=== PATIENT | female | born 1955 | race African-American/Black ===

== ENCOUNTER 2020-10-06 21:54 | Inpatient (IN) ==
[2020-10-06 23:11] LABS: ABG Base Excess -14.4 MMOL/L (-2.5-2.5); ABG HCO3 13.2 MMOL/L (20-26); ABG Oxygen Saturation 96.3 % (95-100); ABG PCO2 22.2 MM HG (35-48); ABG PO2 92.4 MM HG (80-95); ABG TCO2 10.2 MMOL/L (23-27)
[2020-10-06 23:49] LABS: Basophils % 0.1 % (0.0-0.8); Hematocrit 27.3 VOL% (35.7-47.0); Hemoglobin 8.5 GM/DL (12.0-16.0); Immature Granulocytes Absolute 0.07 #; Lymphocytes # 1.1 10*3/uL (1.4-4.0); Lymphocytes % 15.3 % (21.3-54.2); Mean Corpuscular HGB Conc 31.1 GM/DL (32-36); Mean Corpuscular Volume 83.7 FL (87-102); Mean Platelet Volume 13.3 FL (9.6-12.0); Monocytes % 4.6 % (1.7-12.7); Platelet Count 96 T/CUMM (130-400); Red Blood Count 3.26 MC/CUMM (3.8-5.5); Red Cell Distribution Width 15.4 % (9.3-17.3); White Blood Count 6.9 T/CUMM (4-12)
[2020-10-07] LABS: Bilirubin,Urine Negative (Negative); Blood, Urine Moderate mg/dL (Negative); Glucose,Urine (UA) 50 mg/dL (Negative); Ketones,Urine Negative (Negative); Mucus,Urine Occasional /LPF (Occasional); Nitrite,Urine Negative (Negative); Protein,Urine >=500 MG/DL; Squamous Epithelial Cell,Urine Occasional /HPF (0-10); Urine Appearance CLOUDY (Clear); Urine Color Yellow (Yellow); Urine Specific Gravity 1.014 (1.001-1.035); Urine Urobilinogen < 2.0 EU/DL (0.2-1.0)
[2020-10-07 00:01] LABS: Barbiturates Screen,Urine Negative (Negative); Benzodiazepines Screen,Urine Positive (Negative); Cannabinoid Screen,Urine Negative (Negative); Opiate Screen,Urine Negative (Negative); Phencyclidine Screen,Urine Negative (Negative)
[2020-10-07 00:16] LABS: Alanine Aminotransferase 25 U/L (13-56); Albumin 3.4 G/DL (3.4-5.0); Alkaline Phosphatase 181 U/L (45-117); Aspartate Amino Transferase 52 U/L (0-37); Bilirubin,Total < 0.39 MG/DL (0.20-1.00); Blood Urea Nitrogen 102 MG/DL (7-18); Calcium 8.8 MG/DL (8.5-10.1); Carbon Dioxide 13 MMOL/L (21-32); Estimated Glom Filtration Rate 3 ML/MIN; Glucose 104 MG/DL (74-106); Osmolality,Calculated 301.1 MOS/KG (273-304); Potassium 4.2 MMOL/L (3.5-5.1); Sodium 135 MMOL/L (136-145); Total Protein 8.3 G/DL (6.4-8.2)
[2020-10-07] MEDS ORDERED: GLUCAGON 1 MG VIAL IM PRN (02:17)
[2020-10-07] MEDS ORDERED: ONDANSETRON 4 MG/2 ML VIAL IV PRN ×2 (02:17→10:30)
[2020-10-07] MEDS ORDERED: hydrALAZINE 20 MG/1 ML VIAL IV PRN (02:17)
[2020-10-07] MEDS ORDERED: DEXTROSE 50% 25 GM/50 ML VIAL IV PRN (02:17)
[2020-10-07] MEDS ORDERED: SODIUM BICARB INJ 150 MEQ in STERILE WATER INJ 850 ML IV SCH (04:00)
[2020-10-07] MEDS ORDERED: AZITHROMYCIN INJ 500 MG in SODIUM CHLORIDE 0.9% 250 ML IV ONE (04:00)
[2020-10-07] MEDS: SODIUM BICARB INJ 150 MEQ in STERILE WATER INJ 850 ML IV SCH ×2 (04:34→23:15)
[2020-10-07 04:49] LABS: PT Patient Result 11.5 SECS (10.5-12.0)
[2020-10-07] MEDS ORDERED: PANTOPRAZOLE 40 MG TABLET PO SCH (09:00)
[2020-10-07] MEDS ORDERED: ENOXAPARIN 30 MG/0.3 ML SYRINGE SUBCUT SCH (09:00)
[2020-10-07] MEDS: INSULIN REGULAR 100 UNIT/ML SUBCUT SCH ×4 (09:20→22:07)
[2020-10-07] MEDS: DOCUSATE SODIUM 100 MG CAPSULE PO SCH ×2 (09:20→22:21)
[2020-10-07] MEDS: CHOLECALCIFEROL 1,000 UNIT TABLET PO SCH (09:20)
[2020-10-07] MEDS: ASCORBIC ACID 500 MG TABLET PO SCH ×2 (09:20→22:21)
[2020-10-07] MEDS: CETIRIZINE 10 MG TABLET PO SCH (09:20)
[2020-10-07] MEDS: ZINC GLUCONATE 50 MG TABLET PO SCH (09:20)
[2020-10-07] MEDS: DEXAMETHASONE 4 MG/1 ML VIAL IV SCH (09:21)
[2020-10-07] MEDS ORDERED: ACETAMINOPHEN 325 MG TABLET PO PRN (10:30)
[2020-10-07] MEDS ORDERED: MECLIZINE 25 MG TABLET PO PRN (10:30)
[2020-10-07] MEDS ORDERED: diphenhydrAMINE 50 MG/1 ML VIAL IV PRN (10:30)
[2020-10-07] MEDS ORDERED: methylPREDNISolone SOD SUC 125 MG/2 ML VIAL IV PRN (10:30)
[2020-10-07] MEDS ORDERED: CASIRIVIMAB/IMDEVIMAB 1,200 MG in SODIUM CHLORIDE 0.9% 100 ML IV ONE ×2 (11:30→17:00)
[2020-10-07] MEDS ORDERED: LIDOCAINE 1%/EPI INJ 20 ML VIAL ONE (13:14)
[2020-10-07] MEDS ORDERED: HEPARIN 5,000 UNIT/1 ML VIAL ONE (13:14)
[2020-10-07] MEDS ORDERED: BUPIVACAINE MPF 0.25% 30 ML VIAL ONE (13:14)
[2020-10-07] MEDS ORDERED: MIDAZOLAM 2 MG/2 ML VIAL ONE (13:18)
[2020-10-07] MEDS ORDERED: KETAMINE 500 MG/10 ML VIAL ONE (13:18)
[2020-10-07] MEDS ORDERED: DEXMEDETOMIDINE 200 MCG/2 ML VIAL ONE (13:19)
[2020-10-07] MEDS ORDERED: ETOMIDATE 40 MG/20 ML VIAL IV ONE (13:19)
[2020-10-07] MEDS ORDERED: fentaNYL 100 MCG/2 ML VIAL ONE (13:19)
[2020-10-07] MEDS: METOPROLOL SUCCINATE XL 50 MG TABLET PO SCH ×2 (13:45→18:37)
[2020-10-07] MEDS: ASPIRIN EC 81 MG TABLET PO SCH (13:46)
[2020-10-07] MEDS ORDERED: CLINDAMYCIN INJ 900 MG/50 ML PREMIX IV ONE (14:11)
[2020-10-07] MEDS: ROSUVASTATIN 20 MG TABLET PO SCH (22:21)
[2020-10-08] MEDS: ACETAMINOPHEN 325 MG TABLET PO PRN ×2 (00:25→04:23)
[2020-10-08] MEDS: SODIUM BICARB INJ 150 MEQ in STERILE WATER INJ 850 ML IV SCH ×2 (06:17→23:46)
[2020-10-08 06:25] LABS: Hemoglobin 8.2 GM/DL (12.0-16.0); Immature Granulocytes % 0.9 %; Immature Granulocytes Absolute 0.07 #; Lymphocytes # 0.7 10*3/uL (1.4-4.0); Lymphocytes % 8.6 % (21.3-54.2); Mean Corpuscular HGB Conc 32.8 GM/DL (32-36); Mean Corpuscular Volume 79.4 FL (87-102); Neutrophils % 87.5 % (38.7-73.9); Platelet Count 101 T/CUMM (130-400); Red Blood Count 3.15 MC/CUMM (3.8-5.5); Red Cell Distribution Width 15.1 % (9.3-17.3); White Blood Count 7.7 T/CUMM (4-12)
[2020-10-08 06:44] LABS: Calcium 7.5 MG/DL (8.5-10.1); Potassium 3.5 MMOL/L (3.5-5.1)
[2020-10-08 06:44] LABS: Albumin 2.7 G/DL (3.4-5.0); Bilirubin,Total 0.8 MG/DL (0.20-1.00); Calcium 7.7 MG/DL (8.5-10.1); Osmolality,Calculated 287.8 MOS/KG (273-304); Potassium 3.4 MMOL/L (3.5-5.1); Total Protein 7.3 G/DL (6.4-8.2)
[2020-10-08 07:05] LABS: Band Neutrophils 32 % (0-10); Lymphocytes 6 % (20-55); Metamyelocytes 1 %; Segmented Neutrophils 58 % (50-85); Total Cells Counted 100
[2020-10-08 07:06] LABS: Anisocytosis 1+; Burr Cells Few; Platelet Estimate Adequate
[2020-10-08] MEDS ORDERED: POTASSIUM CHLORIDE 20 MEQ TABLET PO ONE (07:42)
[2020-10-08] MEDS ORDERED: MAGNESIUM SULF RIDER 2 GM/50 ML PREMIX IV ONE (07:43)
[2020-10-08] MEDS: INSULIN REGULAR 100 UNIT/ML SUBCUT SCH ×4 (08:00→22:32)
[2020-10-08 10:05] LABS: Hepatitis B Core IgM Quant 0.11 Index; Hepatitis B Surface Ag Quant < 0.10 Index; Hepatitis B Surface Ag Result Non-Reactive (NonReactive); Hepatitis C Virus Ab Quant 0.19 Index; Hepatitis C Virus Ab Result Non-Reactive (NonReactive)
[2020-10-08] MEDS: ASCORBIC ACID 500 MG TABLET PO SCH ×2 (11:13→22:33)
[2020-10-08] MEDS: CHOLECALCIFEROL 1,000 UNIT TABLET PO SCH (11:13)
[2020-10-08] MEDS: AZITHROMYCIN 250 MG TABLET PO SCH (11:13)
[2020-10-08] MEDS: METOPROLOL SUCCINATE XL 50 MG TABLET PO SCH (11:13)
[2020-10-08] MEDS: DOCUSATE SODIUM 100 MG CAPSULE PO SCH ×2 (11:13→22:32)
[2020-10-08] MEDS: ASPIRIN EC 81 MG TABLET PO SCH (11:13)
[2020-10-08] MEDS: ZINC GLUCONATE 50 MG TABLET PO SCH (11:13)
[2020-10-08] MEDS: HEPARIN 5,000 UNIT/1 ML VIAL SUBCUT SCH ×2 (11:14→18:08)
[2020-10-08] MEDS: CETIRIZINE 10 MG TABLET PO SCH (11:14)
[2020-10-08] MEDS: DEXAMETHASONE 4 MG/1 ML VIAL IV SCH (11:14)
[2020-10-08] MEDS: ROSUVASTATIN 20 MG TABLET PO SCH (22:32)
[2020-10-09] MEDS: HEPARIN 5,000 UNIT/1 ML VIAL SUBCUT SCH ×3 (01:11→17:24)
[2020-10-09] MEDS: ACETAMINOPHEN 325 MG TABLET PO PRN (04:16)
[2020-10-09 06:25] LABS: Hematocrit 25.1 VOL% (35.7-47.0); Hemoglobin 7.7 GM/DL (12.0-16.0); Immature Granulocytes % 1.6 %; Immature Granulocytes Absolute 0.12 #; Lymphocytes # 0.6 10*3/uL (1.4-4.0); Lymphocytes % 7.9 % (21.3-54.2); Mean Corpuscular HGB Conc 30.7 GM/DL (32-36); Mean Corpuscular Volume 83.4 FL (87-102); Mean Platelet Volume 13.9 FL (9.6-12.0); Monocytes % 3.5 % (1.7-12.7); Platelet Count 110 T/CUMM (130-400); Red Blood Count 3.01 MC/CUMM (3.8-5.5); Red Cell Distribution Width 14.9 % (9.3-17.3); White Blood Count 7.6 T/CUMM (4-12)
[2020-10-09 06:51] LABS: Band Neutrophils 2 % (0-10); Eosinophils 1 % (0-10); Hypochromasia 1+; Lymphocytes 4 % (20-55); Segmented Neutrophils 86 % (50-85); Total Cells Counted 100
[2020-10-09 06:52] LABS: Anisocytosis 1+; Microcytosis 1+; Platelet Estimate Decreased
[2020-10-09 07:09] LABS: Albumin 2.3 G/DL (3.4-5.0); Bilirubin,Total 1.5 MG/DL (0.20-1.00); Calcium 8.1 MG/DL (8.5-10.1); Ferritin 1765.9 ng/ml (8-252); Osmolality,Calculated 278.8 MOS/KG (273-304); Potassium 3.3 MMOL/L (3.5-5.1); Total Protein 7.2 G/DL (6.4-8.2)
[2020-10-09] MEDS: INSULIN REGULAR 100 UNIT/ML SUBCUT SCH ×4 (07:57→21:38)
[2020-10-09] MEDS ORDERED: POTASSIUM CHLORIDE 20 MEQ TABLET PO PRN (08:10)
[2020-10-09] MEDS: DEXAMETHASONE 4 MG/1 ML VIAL IV SCH (08:20)
[2020-10-09] MEDS: ASPIRIN EC 81 MG TABLET PO SCH (10:59)
[2020-10-09] MEDS: METOPROLOL SUCCINATE XL 50 MG TABLET PO SCH (10:59)
[2020-10-09] MEDS: DOCUSATE SODIUM 100 MG CAPSULE PO SCH ×2 (10:59→21:38)
[2020-10-09] MEDS: CETIRIZINE 10 MG TABLET PO SCH (11:00)
[2020-10-09] MEDS: ZINC GLUCONATE 50 MG TABLET PO SCH (11:00)
[2020-10-09] MEDS: ASCORBIC ACID 500 MG TABLET PO SCH ×2 (11:00→21:38)
[2020-10-09] MEDS: AZITHROMYCIN 250 MG TABLET PO SCH (11:00)
[2020-10-09] MEDS: CHOLECALCIFEROL 1,000 UNIT TABLET PO SCH (11:00)
[2020-10-09] MEDS ORDERED: SODIUM BICARB INJ 150 MEQ in STERILE WATER INJ 1,000 ML IV SCH (14:00)
[2020-10-09] MEDS: hydrALAZINE 25 MG TABLET PO SCH ×2 (17:24→21:38)
[2020-10-09] MEDS: ROSUVASTATIN 20 MG TABLET PO SCH (21:38)
[2020-10-10] MEDS: HEPARIN 5,000 UNIT/1 ML VIAL SUBCUT SCH ×3 (02:50→16:23)
[2020-10-10 06:30] LABS: Basophils % 0.1 % (0.0-0.8); Hematocrit 25.9 VOL% (35.7-47.0); Hemoglobin 7.9 GM/DL (12.0-16.0); Immature Granulocytes Absolute 0.22 #; Lymphocytes # 1.1 10*3/uL (1.4-4.0); Lymphocytes % 9.5 % (21.3-54.2); Mean Corpuscular HGB Conc 30.5 GM/DL (32-36); Mean Corpuscular Volume 84.6 FL (87-102); Mean Platelet Volume 12.4 FL (9.6-12.0); Monocytes % 5.3 % (1.7-12.7); Neutrophils % 83.1 % (38.7-73.9); Platelet Count 125 T/CUMM (130-400); Red Blood Count 3.06 MC/CUMM (3.8-5.5); Red Cell Distribution Width 14.6 % (9.3-17.3)
[2020-10-10 06:51] LABS: Hypochromasia 1+
[2020-10-10 06:52] LABS: Microcytosis 1+; Platelet Estimate Adequate
[2020-10-10 07:04] LABS: Albumin 2.4 G/DL (3.4-5.0); Bilirubin,Total 1.1 MG/DL (0.20-1.00); Calcium 8.1 MG/DL (8.5-10.1); Ferritin 1850.7 ng/ml (8-252); Osmolality,Calculated 280.1 MOS/KG (273-304); Potassium 3.3 MMOL/L (3.5-5.1); Total Protein 7.3 G/DL (6.4-8.2)
[2020-10-10] MEDS: INSULIN REGULAR 100 UNIT/ML SUBCUT SCH ×4 (08:24→21:10)
[2020-10-10] MEDS: ISOSORBIDE MONONITRATE 30 MG TABLET PO SCH (09:09)
[2020-10-10] MEDS: ASPIRIN EC 81 MG TABLET PO SCH (09:10)
[2020-10-10] MEDS: DOCUSATE SODIUM 100 MG CAPSULE PO SCH ×2 (09:10→21:10)
[2020-10-10] MEDS: CHOLECALCIFEROL 1,000 UNIT TABLET PO SCH (09:10)
[2020-10-10] MEDS: hydrALAZINE 25 MG TABLET PO SCH ×3 (09:10→21:10)
[2020-10-10] MEDS: ASCORBIC ACID 500 MG TABLET PO SCH ×2 (09:10→21:10)
[2020-10-10] MEDS: ZINC GLUCONATE 50 MG TABLET PO SCH (09:10)
[2020-10-10] MEDS: DEXAMETHASONE 4 MG TABLET PO SCH (09:10)
[2020-10-10] MEDS: CETIRIZINE 10 MG TABLET PO SCH (09:11)
[2020-10-10] MEDS: AZITHROMYCIN 250 MG TABLET PO SCH (09:11)
[2020-10-10] MEDS: METOPROLOL SUCCINATE XL 50 MG TABLET PO SCH (09:11)
[2020-10-10] MEDS ORDERED: CALCIUM CARBONATE CHEW 500 MG TABLET PO PRN (20:43)
[2020-10-10] MEDS: ROSUVASTATIN 20 MG TABLET PO SCH (21:10)
[2020-10-11] MEDS: HEPARIN 5,000 UNIT/1 ML VIAL SUBCUT SCH ×3 (01:28→17:43)
[2020-10-11 06:31] LABS: Basophils # 0.1 10*3/uL (0.0-0.2); Basophils % 0.5 % (0.0-0.8); Hematocrit 35.7 VOL% (35.7-47.0); Immature Granulocytes % 5.1 %; Immature Granulocytes Absolute 0.48 #; Lymphocytes # 1.1 10*3/uL (1.4-4.0); Lymphocytes % 11.9 % (21.3-54.2); Mean Corpuscular HGB Conc 30.8 GM/DL (32-36); Mean Corpuscular Volume 86.7 FL (87-102); Mean Platelet Volume 12.2 FL (9.6-12.0); Monocytes % 6.3 % (1.7-12.7); Neutrophils % 76.2 % (38.7-73.9); Platelet Count 83 T/CUMM (130-400); Red Blood Count 4.12 MC/CUMM (3.8-5.5); Red Cell Distribution Width 14.1 % (9.3-17.3); White Blood Count 9.4 T/CUMM (4-12)
[2020-10-11 06:42] LABS: Albumin 2.3 G/DL (3.4-5.0); Bilirubin,Total 1.1 MG/DL (0.20-1.00); Calcium 8.2 MG/DL (8.5-10.1); Ferritin 1422.1 ng/ml (8-252); Osmolality,Calculated 283.7 MOS/KG (273-304); Potassium 3.3 MMOL/L (3.5-5.1); Total Protein 6.7 G/DL (6.4-8.2)
[2020-10-11 06:51] LABS: Band Neutrophils 1 % (0-10); Lymphocytes 14 % (20-55); Platelet Estimate Decreased; Segmented Neutrophils 82 % (50-85); Total Cells Counted 100
[2020-10-11] MEDS: METOPROLOL SUCCINATE XL 50 MG TABLET PO SCH (09:37)
[2020-10-11] MEDS: CETIRIZINE 10 MG TABLET PO SCH (09:37)
[2020-10-11] MEDS: DOCUSATE SODIUM 100 MG CAPSULE PO SCH ×2 (09:38→21:40)
[2020-10-11] MEDS: ZINC GLUCONATE 50 MG TABLET PO SCH (09:38)
[2020-10-11] MEDS: DEXAMETHASONE 4 MG TABLET PO SCH (09:38)
[2020-10-11] MEDS: hydrALAZINE 25 MG TABLET PO SCH ×3 (09:38→22:53)
[2020-10-11] MEDS: ASCORBIC ACID 500 MG TABLET PO SCH ×2 (09:38→21:40)
[2020-10-11] MEDS: CHOLECALCIFEROL 1,000 UNIT TABLET PO SCH (09:38)
[2020-10-11] MEDS: ASPIRIN EC 81 MG TABLET PO SCH (09:38)
[2020-10-11] MEDS: ISOSORBIDE MONONITRATE 30 MG TABLET PO SCH (09:39)
[2020-10-11] MEDS: AZITHROMYCIN 250 MG TABLET PO SCH (09:39)
[2020-10-11] MEDS: INSULIN REGULAR 100 UNIT/ML SUBCUT SCH ×4 (10:57→22:54)
[2020-10-11] MEDS ORDERED: POTASSIUM CHLORIDE 10 MEQ TABLET PO ONE (15:34)
[2020-10-11] MEDS: ROSUVASTATIN 20 MG TABLET PO SCH (21:40)
[2020-10-12] MEDS: HEPARIN 5,000 UNIT/1 ML VIAL SUBCUT SCH ×2 (01:42→08:42)
[2020-10-12 06:41] LABS: Albumin 2.1 G/DL (3.4-5.0); Bilirubin,Total 0.4 MG/DL (0.20-1.00); Calcium 7.9 MG/DL (8.5-10.1); Ferritin 1224.6 ng/ml (8-252); Potassium 3.2 MMOL/L (3.5-5.1); Total Protein 6.3 G/DL (6.4-8.2)
[2020-10-12 07:05] LABS: Basophils % 0.1 % (0.0-0.8); Eosinophils % 0.1 % (0.00-10.9); Hematocrit 24.4 VOL% (35.7-47.0); Hemoglobin 7.6 GM/DL (12.0-16.0); Immature Granulocytes % 9.4 %; Immature Granulocytes Absolute 0.94 #; Lymphocytes # 1.5 10*3/uL (1.4-4.0); Lymphocytes % 14.6 % (21.3-54.2); Mean Corpuscular HGB Conc 31.1 GM/DL (32-36); Mean Corpuscular Volume 84.1 FL (87-102); Mean Platelet Volume 12.7 FL (9.6-12.0); Monocytes % 8.1 % (1.7-12.7); Neutrophils % 67.7 % (38.7-73.9); Platelet Count 119 T/CUMM (130-400); Red Cell Distribution Width 13.9 % (9.3-17.3)
[2020-10-12 07:26] LABS: Band Neutrophils 1 % (0-10); Hypochromasia 1+; Lymphocytes 17 % (20-55); Microcytosis 1+; Platelet Estimate Decreased; Segmented Neutrophils 80 % (50-85); Total Cells Counted 100
[2020-10-12] MEDS: ASPIRIN EC 81 MG TABLET PO SCH (08:41)
[2020-10-12] MEDS: DEXAMETHASONE 4 MG TABLET PO SCH (08:41)
[2020-10-12] MEDS: CHOLECALCIFEROL 1,000 UNIT TABLET PO SCH (08:41)
[2020-10-12] MEDS: METOPROLOL SUCCINATE XL 50 MG TABLET PO SCH (08:42)
[2020-10-12] MEDS: ASCORBIC ACID 500 MG TABLET PO SCH (08:42)
[2020-10-12] MEDS: ZINC GLUCONATE 50 MG TABLET PO SCH (08:42)
[2020-10-12] MEDS: DOCUSATE SODIUM 100 MG CAPSULE PO SCH (08:42)
[2020-10-12] MEDS: ISOSORBIDE MONONITRATE 30 MG TABLET PO SCH (08:42)
[2020-10-12] MEDS: hydrALAZINE 25 MG TABLET PO SCH (08:42)
[2020-10-12] MEDS: CETIRIZINE 10 MG TABLET PO SCH (08:42)
[2020-10-12] MEDS: INSULIN REGULAR 100 UNIT/ML SUBCUT SCH ×2 (08:50→12:28)
[2020-10-12 11:53] VITALS: BP 126/82
[2020-10-12] MEDS ORDERED: HEPARIN LOCK FLUSH 500 UNIT/5 ML SYRINGE IV ONE (13:37)
== END 2020-10-12 14:09 | disposition home health service (06) | DRG 720 ==
LOC: EDBD → EDUNIT# → N.ED 21:54 → SUATTDRO 10-07 01:28 → N.EDINP 10-07 01:28 → N.2E 10-07 09:23
PROVIDERS: ADMIT Hospitalist; ATTEND Internal Medicine

== ENCOUNTER 2021-11-10 12:00 | Inpatient (IN) ==
[2021-11-10] MEDS ORDERED: VANCOMYCIN INJ 1,000 MG in SODIUM CHLORIDE 0.9% 250 ML IV STA ×2 (13:37→13:38)
[2021-11-10 14:20] LABS: Basophils % 0.3 % (0.0-0.8); Eosinophils % 0.5 % (0.00-10.9); Hematocrit 29.1 VOL% (35.7-47.0); Hemoglobin 9.6 GM/DL (12.0-16.0); Immature Granulocytes Absolute 0.12 #; Lymphocytes # 0.2 10*3/uL (1.4-4.0); Lymphocytes % 3.9 % (21.3-54.2); Mean Corpuscular Volume 87.4 FL (87-102); Mean Platelet Volume 12.4 FL (9.6-12.0); Monocytes % 0.3 % (1.7-12.7); Platelet Count 87 T/CUMM (130-400); Red Blood Count 3.33 MC/CUMM (3.8-5.5); Red Cell Distribution Width 16.8 % (9.3-17.3)
[2021-11-10 14:33] LABS: Albumin 2.6 G/DL (3.4-5.0); Bilirubin,Total 0.8 MG/DL (0.20-1.00); Potassium 2.7 MMOL/L (3.5-5.1); Total Protein 7.6 G/DL (6.4-8.2)
[2021-11-10 15:01] LABS: Band Neutrophils 24 % (0-10); Lymphocytes 7 % (20-55); Nucleated Red Blood Cells 1 /100 WBC (0-5); Total Cells Counted 100
[2021-11-10 15:08] LABS: Anisocytosis Slight
[2021-11-10 15:12] LABS: Platelet Estimate Decreased
[2021-11-10] MEDS ORDERED: ONDANSETRON 4 MG/2 ML VIAL IV PRN (15:36)
[2021-11-10] MEDS ORDERED: GLUCAGON 1 MG VIAL IM PRN (16:09)
[2021-11-10] MEDS ORDERED: DEXTROSE 10% 250 ML BAG IV PRN (16:09)
[2021-11-10] MEDS ORDERED: VANCOMYCIN INJ 500 MG in SODIUM CHLORIDE 0.9% 100 ML IV ONE (20:00)
[2021-11-10] MEDS: INSULIN REGULAR 100 UNIT/ML SUBCUT SCH ×2 (20:09→23:06)
[2021-11-10] MEDS ORDERED: POTASSIUM CHLORIDE 20 MEQ TABLET PO ONE (20:43)
[2021-11-10] MEDS: ROSUVASTATIN 20 MG TABLET PO SCH (21:45)
[2021-11-10] MEDS: LATANOPROST 0.005% OPH SOLN 2.5 ML BOTTLE BOTH EYES SCH (21:55)
[2021-11-11 06:49] LABS: Basophils % 0.2 % (0.0-0.8); Eosinophils # 0.1 10*3/uL (0.0-0.87); Eosinophils % 0.4 % (0.00-10.9); Hemoglobin 8.9 GM/DL (12.0-16.0); Immature Granulocytes % 1.4 %; Immature Granulocytes Absolute 0.22 #; Lymphocytes # 1.5 10*3/uL (1.4-4.0); Mean Corpuscular Volume 87.1 FL (87-102); Mean Platelet Volume 12.3 FL (9.6-12.0); Platelet Count 99 T/CUMM (130-400); Red Cell Distribution Width 17.1 % (9.3-17.3); White Blood Count 16.3 T/CUMM (4-12)
[2021-11-11 07:04] LABS: Band Neutrophils 5 % (0-10); Eosinophils 1 % (0-10); Hypochromia Slight; Lymphocytes 13 % (20-55); Microcytosis 1+; Total Cells Counted 100
[2021-11-11 07:05] LABS: Platelet Estimate Decreased
[2021-11-11 07:11] LABS: Albumin 2.5 G/DL (3.4-5.0); Bilirubin,Total 0.5 MG/DL (0.20-1.00); Osmolality,Calculated 282.8 MOS/KG (273-304); Potassium 4.2 MMOL/L (3.5-5.1)
[2021-11-11] MEDS: SEVELAMER CARBONATE 800 MG TABLET PO SCH ×3 (10:29→16:34)
[2021-11-11] MEDS: sitaGLIPtin 25 MG TABLET PO SCH (10:29)
[2021-11-11] MEDS: CETIRIZINE 10 MG TABLET PO SCH (10:30)
[2021-11-11] MEDS: ISOSORBIDE DINITRATE 10 MG TABLET PO SCH (10:30)
[2021-11-11] MEDS: METOPROLOL SUCCINATE XL 50 MG TABLET PO SCH (10:31)
[2021-11-11] MEDS: CINACALCET 30 MG TABLET PO SCH (10:31)
[2021-11-11] MEDS: PANTOPRAZOLE 40 MG TABLET PO SCH (10:31)
[2021-11-11] MEDS: INSULIN REGULAR 100 UNIT/ML SUBCUT SCH ×4 (10:32→22:48)
[2021-11-11] MEDS ORDERED: SEVELAMER CARBONATE 800 MG TABLET PO SCH (16:00)
[2021-11-11] MEDS: CEFEPIME 1,000 MG in SODIUM CHLORIDE 0.9% 100 ML IV SCH (16:35)
[2021-11-11] MEDS: LATANOPROST 0.005% OPH SOLN 2.5 ML BOTTLE BOTH EYES SCH (21:55)
[2021-11-11] MEDS: ROSUVASTATIN 20 MG TABLET PO SCH (21:55)
[2021-11-11] MEDS ORDERED: diphenhydrAMINE CAP 25 MG CAPSULE PO PRN (22:05)
[2021-11-12] MEDS: ACETAMINOPHEN 325 MG TABLET PO PRN ×2 (04:24→20:20)
[2021-11-12 05:27] LABS: Basophils # 0.1 10*3/uL (0.0-0.2); Basophils % 0.3 % (0.0-0.8); Eosinophils # 0.3 10*3/uL (0.0-0.87); Eosinophils % 1.8 % (0.00-10.9); Immature Granulocytes % 2.8 %; Immature Granulocytes Absolute 0.46 #; Lymphocytes % 12.3 % (21.3-54.2); Mean Corpuscular HGB Conc 32.1 GM/DL (32-36); Mean Corpuscular Volume 88.9 FL (87-102); Mean Platelet Volume 12.3 FL (9.6-12.0); Monocytes # 0.9 10*3/uL (0.11-0.8); Monocytes % 5.5 % (1.7-12.7); Neutrophils % 77.3 % (38.7-73.9); Platelet Count 117 T/CUMM (130-400); Red Blood Count 3.15 MC/CUMM (3.8-5.5); Red Cell Distribution Width 16.5 % (9.3-17.3); White Blood Count 16.4 T/CUMM (4-12)
[2021-11-12 05:46] LABS: Calcium 8.8 MG/DL (8.5-10.1); Osmolality,Calculated 291.7 MOS/KG (273-304); Potassium 3.9 MMOL/L (3.5-5.1)
[2021-11-12] MEDS: INSULIN REGULAR 100 UNIT/ML SUBCUT SCH ×4 (07:39→20:21)
[2021-11-12] MEDS: SEVELAMER CARBONATE 800 MG TABLET PO SCH ×4 (08:51→16:32)
[2021-11-12] MEDS: ISOSORBIDE DINITRATE 10 MG TABLET PO SCH ×2 (08:52→09:34)
[2021-11-12] MEDS: CINACALCET 30 MG TABLET PO SCH ×2 (08:52→09:35)
[2021-11-12] MEDS: METOPROLOL SUCCINATE XL 50 MG TABLET PO SCH ×2 (08:52→09:34)
[2021-11-12] MEDS: PANTOPRAZOLE 40 MG TABLET PO SCH ×2 (08:52→09:34)
[2021-11-12] MEDS: sitaGLIPtin 25 MG TABLET PO SCH ×2 (08:52→09:33)
[2021-11-12] MEDS: CETIRIZINE 10 MG TABLET PO SCH ×2 (08:52→09:35)
[2021-11-12] MEDS ORDERED: SIMETHICONE CHEW 125 MG TABLET PO PRN (12:46)
[2021-11-12] MEDS ORDERED: SIMETHICONE CHEW 125 MG TABLET PO ONE (13:00)
[2021-11-12] MEDS ORDERED: HEPARIN 10,000 UNIT/10 ML VIAL IV PRN (15:07)
[2021-11-12] MEDS: CEFEPIME 1,000 MG in SODIUM CHLORIDE 0.9% 100 ML IV SCH (16:31)
[2021-11-12] MEDS ORDERED: VANCOMYCIN INJ 500 MG in SODIUM CHLORIDE 0.9% 100 ML IV PRN (17:00)
[2021-11-12] MEDS: LATANOPROST 0.005% OPH SOLN 2.5 ML BOTTLE BOTH EYES SCH (20:21)
[2021-11-12] MEDS: ROSUVASTATIN 20 MG TABLET PO SCH (20:21)
[2021-11-13 05:03] LABS: Basophils % 0.3 % (0.0-0.8); Eosinophils # 0.2 10*3/uL (0.0-0.87); Eosinophils % 2.1 % (0.00-10.9); Hematocrit 25.2 VOL% (35.7-47.0); Hemoglobin 8.1 GM/DL (12.0-16.0); Immature Granulocytes % 5.5 %; Immature Granulocytes Absolute 0.42 #; Lymphocytes # 1.6 10*3/uL (1.4-4.0); Lymphocytes % 20.4 % (21.3-54.2); Mean Corpuscular HGB Conc 32.1 GM/DL (32-36); Mean Corpuscular Volume 87.8 FL (87-102); Monocytes # 0.9 10*3/uL (0.11-0.8); Monocytes % 11.3 % (1.7-12.7); Neutrophils % 60.4 % (38.7-73.9); Platelet Count 122 T/CUMM (130-400); Red Blood Count 2.87 MC/CUMM (3.8-5.5); Red Cell Distribution Width 16.1 % (9.3-17.3); White Blood Count 7.7 T/CUMM (4-12)
[2021-11-13 05:27] LABS: Eosinophils 4 % (0-10); Lymphocytes 28 % (20-55); Metamyelocytes 1 %; Platelet Estimate Normal; Total Cells Counted 100
[2021-11-13 05:34] LABS: Calcium 8.8 MG/DL (8.5-10.1); Potassium 3.9 MMOL/L (3.5-5.1)
[2021-11-13 05:53] LABS: Risk Ratio 3.64; VLDL Cholesterol 41.4 MG/DL
[2021-11-13] MEDS: INSULIN REGULAR 100 UNIT/ML SUBCUT SCH ×4 (07:47→20:43)
[2021-11-13] MEDS: METOPROLOL SUCCINATE XL 50 MG TABLET PO SCH (08:22)
[2021-11-13] MEDS: CINACALCET 30 MG TABLET PO SCH (08:23)
[2021-11-13] MEDS: PANTOPRAZOLE 40 MG TABLET PO SCH (08:23)
[2021-11-13] MEDS: sitaGLIPtin 25 MG TABLET PO SCH (08:23)
[2021-11-13] MEDS: CETIRIZINE 10 MG TABLET PO SCH (08:24)
[2021-11-13] MEDS: ISOSORBIDE DINITRATE 10 MG TABLET PO SCH (08:24)
[2021-11-13] MEDS: SEVELAMER CARBONATE 800 MG TABLET PO SCH ×3 (08:25→17:13)
[2021-11-13] MEDS ORDERED: GLUCAGON 1 MG VIAL IM PRN (09:40)
[2021-11-13] MEDS ORDERED: DEXTROSE 50% 25 GM/50 ML VIAL IV PRN (09:40)
[2021-11-13] MEDS: CEFEPIME 1,000 MG in SODIUM CHLORIDE 0.9% 100 ML IV SCH (17:13)
[2021-11-13] MEDS: ROSUVASTATIN 20 MG TABLET PO SCH (20:42)
[2021-11-13] MEDS: LATANOPROST 0.005% OPH SOLN 2.5 ML BOTTLE BOTH EYES SCH (20:43)
[2021-11-14] MEDS: ACETAMINOPHEN 325 MG TABLET PO PRN (04:49)
[2021-11-14 05:44] LABS: Basophils % 0.2 % (0.0-0.8); Eosinophils # 0.2 10*3/uL (0.0-0.87); Hematocrit 28.5 VOL% (35.7-47.0); Hemoglobin 9.1 GM/DL (12.0-16.0); Immature Granulocytes % 3.9 %; Immature Granulocytes Absolute 0.33 #; Lymphocytes # 1.8 10*3/uL (1.4-4.0); Lymphocytes % 21.4 % (21.3-54.2); Mean Corpuscular HGB Conc 31.9 GM/DL (32-36); Mean Corpuscular Volume 89.1 FL (87-102); Mean Platelet Volume 12.3 FL (9.6-12.0); Monocytes # 0.7 10*3/uL (0.11-0.8); Monocytes % 8.5 % (1.7-12.7); Platelet Count 149 T/CUMM (130-400); Red Cell Distribution Width 16.4 % (9.3-17.3); White Blood Count 8.6 T/CUMM (4-12)
[2021-11-14 06:08] LABS: Calcium 9.3 MG/DL (8.5-10.1); Osmolality,Calculated 277.2 MOS/KG (273-304)
[2021-11-14] MEDS: INSULIN REGULAR 100 UNIT/ML SUBCUT SCH ×4 (08:21→20:37)
[2021-11-14] MEDS: SEVELAMER CARBONATE 800 MG TABLET PO SCH ×3 (09:00→16:21)
[2021-11-14] MEDS: sitaGLIPtin 25 MG TABLET PO SCH (10:00)
[2021-11-14] MEDS: PANTOPRAZOLE 40 MG TABLET PO SCH (10:14)
[2021-11-14] MEDS: METOPROLOL SUCCINATE XL 50 MG TABLET PO SCH (10:14)
[2021-11-14] MEDS: ISOSORBIDE DINITRATE 10 MG TABLET PO SCH (10:14)
[2021-11-14] MEDS: CINACALCET 30 MG TABLET PO SCH (10:14)
[2021-11-14] MEDS: CETIRIZINE 10 MG TABLET PO SCH (10:15)
[2021-11-14 16:15] LABS: Bacteria,Urine Occasional /HPF (Few); RBC,Urine 7 /HPF (0-4); Squamous Epithelial Cell,Urine Many /HPF (0-10)
[2021-11-14 16:19] LABS: Protein,Urine 100 mg/dL (Negative); Urine Appearance Slightly Hazy (Clear); Urine Color Yellow (Yellow); Urine pH 8.5 (4.5-8.0)
[2021-11-14 16:20] LABS: Glucose,Urine (UA) 250 mg/dL (Negative); Ketones,Urine Negative (Negative)
[2021-11-14 16:21] LABS: Bilirubin,Urine Negative (Negative); Blood, Urine Negative (Negative); Nitrite,Urine Negative (Negative); Urine Urobilinogen 0.2 eU/dL (<2.0)
[2021-11-14] MEDS: CEFEPIME 1,000 MG in SODIUM CHLORIDE 0.9% 100 ML IV SCH (16:21)
[2021-11-14] MEDS: ROSUVASTATIN 20 MG TABLET PO SCH (20:23)
[2021-11-14] MEDS: LATANOPROST 0.005% OPH SOLN 2.5 ML BOTTLE BOTH EYES SCH (20:24)
[2021-11-15 06:07] LABS: Calcium 9.3 MG/DL (8.5-10.1); Osmolality,Calculated 276.7 MOS/KG (273-304); Potassium 3.7 MMOL/L (3.5-5.1)
[2021-11-15 07:13] LABS: Basophils % 0.4 % (0.0-0.8); Eosinophils # 0.1 10*3/uL (0.0-0.87); Eosinophils % 1.5 % (0.00-10.9); Hematocrit 30.2 VOL% (35.7-47.0); Hemoglobin 9.8 GM/DL (12.0-16.0); Immature Granulocytes % 2.2 %; Immature Granulocytes Absolute 0.15 #; Lymphocytes # 1.9 10*3/uL (1.4-4.0); Lymphocytes % 27.7 % (21.3-54.2); Mean Corpuscular HGB Conc 32.5 GM/DL (32-36); Mean Corpuscular Volume 87.8 FL (87-102); Mean Platelet Volume 11.8 FL (9.6-12.0); Monocytes # 0.7 10*3/uL (0.11-0.8); Monocytes % 9.7 % (1.7-12.7); Neutrophils % 58.5 % (38.7-73.9); Platelet Count 177 T/CUMM (130-400); Red Blood Count 3.44 MC/CUMM (3.8-5.5); Red Cell Distribution Width 16.5 % (9.3-17.3); White Blood Count 6.9 T/CUMM (4-12)
[2021-11-15] MEDS: INSULIN REGULAR 100 UNIT/ML SUBCUT SCH ×2 (07:24→11:12)
[2021-11-15] MEDS: ISOSORBIDE DINITRATE 10 MG TABLET PO SCH (08:32)
[2021-11-15] MEDS: SEVELAMER CARBONATE 800 MG TABLET PO SCH ×2 (08:32→11:57)
[2021-11-15] MEDS: PANTOPRAZOLE 40 MG TABLET PO SCH (08:33)
[2021-11-15] MEDS: sitaGLIPtin 25 MG TABLET PO SCH (08:33)
[2021-11-15] MEDS: METOPROLOL SUCCINATE XL 50 MG TABLET PO SCH (08:33)
[2021-11-15] MEDS: CINACALCET 30 MG TABLET PO SCH (08:33)
[2021-11-15] MEDS: CETIRIZINE 10 MG TABLET PO SCH (08:34)
[2021-11-15] MEDS ORDERED: ERGOCALCIFEROL 50,000 UNIT CAPSULE PO SCH (09:00)
[2021-11-15 12:11] VITALS: BP 100/60
== END 2021-11-15 13:17 | disposition home or self-care (01) | DRG 314 ==
LOC: N.ED 12:00 → SUATTDRO 15:30 → N.EDINP 15:30 → N.5E 17:37
PROVIDERS: ADMIT Internal Medicine; ATTEND Internal Medicine

== ENCOUNTER 2021-12-19 09:31 | Inpatient (IN) ==
[2021-12-19] MEDS ORDERED: VANCOMYCIN INJ 1,000 MG in SODIUM CHLORIDE 0.9% 250 ML IV STA (10:47)
[2021-12-19 11:03] LABS: Basophils % 0.2 % (0.0-0.8); Hematocrit 33.2 VOL% (35.7-47.0); Hemoglobin 10.6 GM/DL (12.0-16.0); Immature Granulocytes % 0.5 %; Immature Granulocytes Absolute 0.03 #; Lymphocytes # 0.6 10*3/uL (1.4-4.0); Lymphocytes % 8.8 % (21.3-54.2); Mean Corpuscular HGB Conc 31.9 GM/DL (32-36); Mean Corpuscular Volume 88.8 FL (87-102); Mean Platelet Volume 11.2 FL (9.6-12.0); Monocytes # 0.3 10*3/uL (0.11-0.8); Monocytes % 4.8 % (1.7-12.7); Neutrophils % 85.7 % (38.7-73.9); Platelet Count 149 T/CUMM (130-400); Red Blood Count 3.74 MC/CUMM (3.8-5.5); Red Cell Distribution Width 17.7 % (9.3-17.3); White Blood Count 6.4 T/CUMM (4-12)
[2021-12-19 11:18] LABS: Albumin 3.2 G/DL (3.4-5.0); Bilirubin,Total 0.4 MG/DL (0.20-1.00); Calcium 9.8 MG/DL (8.5-10.1); Osmolality,Calculated 278.4 MOS/KG (273-304); Potassium 4.7 MMOL/L (3.5-5.1); Total Protein 8.6 G/DL (6.4-8.2)
[2021-12-19 11:51] LABS: Bacteria,Urine Occasional /HPF (Few); Bilirubin,Urine Negative (Negative); Blood, Urine Small mg/dL (Negative); Glucose,Urine (UA) >=500 mg/dL (Negative); Ketones,Urine Negative (Negative); Mucus,Urine Occasional /LPF (Occasional); Nitrite,Urine Negative (Negative); Protein,Urine 100 mg/dL (Negative); RBC,Urine <1 /HPF (0-4); Squamous Epithelial Cell,Urine Occasional /HPF (0-10); Urine Appearance CLEAR (Clear); Urine Color Straw (Yellow); Urine Specific Gravity 1.005 (1.001-1.035); Urine Urobilinogen < 2.0 eU/dL (<2.0)
[2021-12-19] MEDS: MORPHINE 2 MG/1 ML SYRINGE IV PRN (12:13)
[2021-12-19] MEDS ORDERED: DEXTROSE 10% 250 ML BAG IV PRN (12:37)
[2021-12-19] MEDS ORDERED: GLUCAGON 1 MG VIAL IM PRN (12:37)
[2021-12-19] MEDS ORDERED: SEVELAMER CARBONATE 800 MG TABLET PO SCH (15:00)
[2021-12-19] MEDS ORDERED: HEPARIN 10,000 UNIT/10 ML VIAL IV PRN (15:25)
[2021-12-19] MEDS: ACETAMINOPHEN 325 MG TABLET PO PRN (16:20)
[2021-12-19] MEDS: LIDOCAINE 5% PATCH TRANSDERM SCH (17:03)
[2021-12-19] MEDS: SEVELAMER CARBONATE 800 MG TABLET PO SCH (19:19)
[2021-12-19] MEDS: HEPARIN 5,000 UNIT/1 ML VIAL SUBCUT SCH (21:23)
[2021-12-19] MEDS: LATANOPROST 0.005% OPH SOLN 2.5 ML BOTTLE BOTH EYES SCH (22:30)
[2021-12-20 05:59] LABS: Basophils % 0.2 % (0.0-0.8); Eosinophils % 0.3 % (0.00-10.9); Hematocrit 31.1 VOL% (35.7-47.0); Hemoglobin 9.8 GM/DL (12.0-16.0); Immature Granulocytes % 0.3 %; Immature Granulocytes Absolute 0.02 #; Lymphocytes # 0.7 10*3/uL (1.4-4.0); Lymphocytes % 10.9 % (21.3-54.2); Mean Corpuscular HGB Conc 31.5 GM/DL (32-36); Mean Corpuscular Volume 89.1 FL (87-102); Monocytes # 0.7 10*3/uL (0.11-0.8); Monocytes % 10.7 % (1.7-12.7); Neutrophils % 77.6 % (38.7-73.9); Platelet Count 124 T/CUMM (130-400); Red Blood Count 3.49 MC/CUMM (3.8-5.5); Red Cell Distribution Width 17.8 % (9.3-17.3); White Blood Count 6.3 T/CUMM (4-12)
[2021-12-20 06:25] LABS: Albumin 2.9 G/DL (3.4-5.0); Bilirubin,Total 0.4 MG/DL (0.20-1.00); Calcium 9.2 MG/DL (8.5-10.1); Osmolality,Calculated 284.7 MOS/KG (273-304); Potassium 3.9 MMOL/L (3.5-5.1); Total Protein 7.9 G/DL (6.4-8.2)
[2021-12-20] MEDS ORDERED: LEVOFLOXACIN INJ 250 MG/50 ML PREMIX IV SCH (08:00)
[2021-12-20] MEDS ORDERED: LEVOFLOXACIN INJ 750 MG/150 ML PREMIX IV ONE (09:00)
[2021-12-20] MEDS: ISOSORBIDE MONONITRATE 30 MG TABLET PO SCH (09:00)
[2021-12-20] MEDS: SEVELAMER CARBONATE 800 MG TABLET PO SCH ×3 (09:35→16:15)
[2021-12-20] MEDS: CINACALCET 30 MG TABLET PO SCH (09:35)
[2021-12-20] MEDS: ERGOCALCIFEROL 50,000 UNIT CAPSULE PO SCH (09:57)
[2021-12-20] MEDS: METOPROLOL SUCCINATE XL 50 MG TABLET PO SCH (09:57)
[2021-12-20] MEDS: PANTOPRAZOLE 40 MG TABLET PO SCH (10:00)
[2021-12-20] MEDS: ROSUVASTATIN 20 MG TABLET PO SCH (10:00)
[2021-12-20] MEDS: sitaGLIPtin 25 MG TABLET PO SCH (10:00)
[2021-12-20] MEDS: HEPARIN 5,000 UNIT/1 ML VIAL SUBCUT SCH ×2 (10:01→20:36)
[2021-12-20] MEDS: cefTRIAXone 2,000 MG in SODIUM CHLORIDE 0.9% 100 ML IV SCH (12:13)
[2021-12-20] MEDS: CETIRIZINE 10 MG TABLET PO SCH (12:14)
[2021-12-20] MEDS: LIDOCAINE 5% PATCH TRANSDERM SCH (16:13)
[2021-12-20] MEDS: MORPHINE 2 MG/1 ML SYRINGE IV PRN (17:42)
[2021-12-20] MEDS: LATANOPROST 0.005% OPH SOLN 2.5 ML BOTTLE BOTH EYES SCH (20:36)
[2021-12-21] MEDS: MORPHINE 2 MG/1 ML SYRINGE IV PRN ×3 (00:14→17:51)
[2021-12-21 05:31] LABS: Basophils % 0.1 % (0.0-0.8); Eosinophils # 0.1 10*3/uL (0.0-0.87); Hematocrit 30.5 VOL% (35.7-47.0); Hemoglobin 9.7 GM/DL (12.0-16.0); Immature Granulocytes % 0.4 %; Immature Granulocytes Absolute 0.03 #; Lymphocytes # 1.1 10*3/uL (1.4-4.0); Lymphocytes % 14.3 % (21.3-54.2); Mean Corpuscular HGB Conc 31.8 GM/DL (32-36); Mean Corpuscular Volume 88.9 FL (87-102); Mean Platelet Volume 11.5 FL (9.6-12.0); Monocytes # 0.7 10*3/uL (0.11-0.8); Monocytes % 8.5 % (1.7-12.7); Neutrophils % 75.7 % (38.7-73.9); Platelet Count 133 T/CUMM (130-400); Red Blood Count 3.43 MC/CUMM (3.8-5.5); Red Cell Distribution Width 17.3 % (9.3-17.3); White Blood Count 7.9 T/CUMM (4-12)
[2021-12-21 05:50] LABS: Albumin 2.6 G/DL (3.4-5.0); Bilirubin,Total 0.4 MG/DL (0.20-1.00); Calcium 9.1 MG/DL (8.5-10.1); Potassium 4.4 MMOL/L (3.5-5.1); Total Protein 7.8 G/DL (6.4-8.2)
[2021-12-21] MEDS: cefTRIAXone 2,000 MG in SODIUM CHLORIDE 0.9% 100 ML IV SCH (11:44)
[2021-12-21] MEDS: CETIRIZINE 10 MG TABLET PO SCH (11:45)
[2021-12-21] MEDS: HEPARIN 5,000 UNIT/1 ML VIAL SUBCUT SCH ×2 (11:45→20:55)
[2021-12-21] MEDS: ISOSORBIDE MONONITRATE 30 MG TABLET PO SCH (11:45)
[2021-12-21] MEDS: ROSUVASTATIN 20 MG TABLET PO SCH (11:45)
[2021-12-21] MEDS: PANTOPRAZOLE 40 MG TABLET PO SCH (11:45)
[2021-12-21] MEDS: METOPROLOL SUCCINATE XL 50 MG TABLET PO SCH (11:45)
[2021-12-21] MEDS: sitaGLIPtin 25 MG TABLET PO SCH (11:46)
[2021-12-21] MEDS: CINACALCET 30 MG TABLET PO SCH (11:46)
[2021-12-21] MEDS: SEVELAMER CARBONATE 800 MG TABLET PO SCH ×3 (12:00→16:13)
[2021-12-21] MEDS: LIDOCAINE 5% PATCH TRANSDERM SCH (16:33)
[2021-12-21] MEDS: LATANOPROST 0.005% OPH SOLN 2.5 ML BOTTLE BOTH EYES SCH (20:54)
[2021-12-22 05:15] LABS: Basophils % 0.2 % (0.0-0.8); Eosinophils # 0.1 10*3/uL (0.0-0.87); Eosinophils % 1.2 % (0.00-10.9); Hematocrit 27.1 VOL% (35.7-47.0); Hemoglobin 8.8 GM/DL (12.0-16.0); Immature Granulocytes % 0.9 %; Immature Granulocytes Absolute 0.05 #; Lymphocytes # 0.9 10*3/uL (1.4-4.0); Lymphocytes % 16.1 % (21.3-54.2); Mean Corpuscular HGB Conc 32.5 GM/DL (32-36); Mean Corpuscular Volume 87.4 FL (87-102); Mean Platelet Volume 11.5 FL (9.6-12.0); Monocytes # 0.6 10*3/uL (0.11-0.8); Neutrophils % 70.6 % (38.7-73.9); Platelet Count 122 T/CUMM (130-400); Red Cell Distribution Width 17.4 % (9.3-17.3); White Blood Count 5.7 T/CUMM (4-12)
[2021-12-22 05:35] LABS: Hypochromia Slight; Microcytosis Slight
[2021-12-22 05:41] LABS: Albumin 2.6 G/DL (3.4-5.0); Bilirubin,Total 0.4 MG/DL (0.20-1.00); Calcium 9.4 MG/DL (8.5-10.1); Osmolality,Calculated 284.4 MOS/KG (273-304); Potassium 4.7 MMOL/L (3.5-5.1); Total Protein 7.7 G/DL (6.4-8.2)
[2021-12-22] MEDS ORDERED: LEVOFLOXACIN INJ 500 MG/100 ML PREMIX IV SCH (09:00)
[2021-12-22] MEDS: SEVELAMER CARBONATE 800 MG TABLET PO SCH ×3 (13:52→16:45)
[2021-12-22] MEDS: HEPARIN 5,000 UNIT/1 ML VIAL SUBCUT SCH (13:53)
[2021-12-22] MEDS: ONDANSETRON 4 MG/2 ML VIAL IV PRN (14:07)
[2021-12-22] MEDS ORDERED: METOPROLOL TARTRATE 25 MG TABLET PO ONE (14:32)
[2021-12-22] MEDS ORDERED: DILTIAZEM 25 MG/5 ML VIAL IV ONE (15:00)
[2021-12-22] MEDS: METOPROLOL TARTRATE 5 MG/5 ML VIAL IV SCH ×2 (15:22→19:27)
[2021-12-22] MEDS: CINACALCET 30 MG TABLET PO SCH (15:25)
[2021-12-22] MEDS: CETIRIZINE 10 MG TABLET PO SCH (15:26)
[2021-12-22] MEDS: PANTOPRAZOLE 40 MG TABLET PO SCH (15:26)
[2021-12-22] MEDS: ISOSORBIDE MONONITRATE 30 MG TABLET PO SCH (15:26)
[2021-12-22] MEDS: sitaGLIPtin 25 MG TABLET PO SCH (15:26)
[2021-12-22] MEDS: ROSUVASTATIN 20 MG TABLET PO SCH (15:26)
[2021-12-22] MEDS: cefTRIAXone 2,000 MG in SODIUM CHLORIDE 0.9% 100 ML IV SCH (15:45)
[2021-12-22] MEDS: METOPROLOL SUCCINATE XL 50 MG TABLET PO SCH (15:51)
[2021-12-22] MEDS: ACETAMINOPHEN 325 MG TABLET PO PRN (16:32)
[2021-12-22] MEDS: LIDOCAINE 5% PATCH TRANSDERM SCH (16:33)
[2021-12-22] MEDS: LATANOPROST 0.005% OPH SOLN 2.5 ML BOTTLE BOTH EYES SCH (20:43)
[2021-12-23 05:51] LABS: Basophils % 0.1 % (0.0-0.8); Eosinophils # 0.1 10*3/uL (0.0-0.87); Eosinophils % 0.9 % (0.00-10.9); Hematocrit 30.2 VOL% (35.7-47.0); Hemoglobin 9.5 GM/DL (12.0-16.0); Immature Granulocytes % 0.8 %; Immature Granulocytes Absolute 0.06 #; Lymphocytes # 1.3 10*3/uL (1.4-4.0); Lymphocytes % 15.9 % (21.3-54.2); Mean Corpuscular HGB Conc 31.5 GM/DL (32-36); Mean Corpuscular Volume 88.3 FL (87-102); Mean Platelet Volume 11.4 FL (9.6-12.0); Neutrophils % 69.3 % (38.7-73.9); Platelet Count 137 T/CUMM (130-400); Red Blood Count 3.42 MC/CUMM (3.8-5.5); Red Cell Distribution Width 17.5 % (9.3-17.3); White Blood Count 7.9 T/CUMM (4-12)
[2021-12-23 06:09] LABS: Albumin 2.9 G/DL (3.4-5.0); Bilirubin,Total 0.4 MG/DL (0.20-1.00); Calcium 9.3 MG/DL (8.5-10.1); Osmolality,Calculated 276.7 MOS/KG (273-304); Potassium 4.5 MMOL/L (3.5-5.1); Total Protein 8.9 G/DL (6.4-8.2)
[2021-12-23] MEDS: cefTRIAXone 2,000 MG in SODIUM CHLORIDE 0.9% 100 ML IV SCH (09:27)
[2021-12-23] MEDS: SEVELAMER CARBONATE 800 MG TABLET PO SCH ×3 (09:28→16:10)
[2021-12-23] MEDS: sitaGLIPtin 25 MG TABLET PO SCH (09:29)
[2021-12-23] MEDS: PANTOPRAZOLE 40 MG TABLET PO SCH (09:29)
[2021-12-23] MEDS: ISOSORBIDE MONONITRATE 30 MG TABLET PO SCH ×2 (09:29→16:51)
[2021-12-23] MEDS: ROSUVASTATIN 20 MG TABLET PO SCH (09:29)
[2021-12-23] MEDS: METOPROLOL SUCCINATE XL 50 MG TABLET PO SCH (09:29)
[2021-12-23] MEDS: CINACALCET 30 MG TABLET PO SCH (09:29)
[2021-12-23] MEDS: CETIRIZINE 10 MG TABLET PO SCH (09:29)
[2021-12-23] MEDS ORDERED: SODIUM CHLORIDE 0.9% 250 ML IV SCH (10:00)
[2021-12-23] MEDS ORDERED: MIDAZOLAM 2 MG/2 ML VIAL ONE (10:36)
[2021-12-23] MEDS ORDERED: LIDOCAINE 2% 5 ML VIAL ONE (10:40)
[2021-12-23] MEDS ORDERED: propofoL 200 MG/20 ML VIAL IV ONE (10:40)
[2021-12-23] MEDS: LIDOCAINE 5% PATCH TRANSDERM SCH (16:09)
[2021-12-23] MEDS: LATANOPROST 0.005% OPH SOLN 2.5 ML BOTTLE BOTH EYES SCH (21:36)
[2021-12-24 05:03] LABS: Basophils % 0.3 % (0.0-0.8); Eosinophils # 0.1 10*3/uL (0.0-0.87); Eosinophils % 1.2 % (0.00-10.9); Hematocrit 30.5 VOL% (35.7-47.0); Hemoglobin 9.6 GM/DL (12.0-16.0); Immature Granulocytes % 1.1 %; Immature Granulocytes Absolute 0.08 #; Lymphocytes # 1.2 10*3/uL (1.4-4.0); Mean Corpuscular HGB Conc 31.5 GM/DL (32-36); Mean Corpuscular Volume 88.7 FL (87-102); Mean Platelet Volume 12.2 FL (9.6-12.0); Monocytes # 0.9 10*3/uL (0.11-0.8); Monocytes % 11.5 % (1.7-12.7); Neutrophils % 69.9 % (38.7-73.9); Platelet Count 154 T/CUMM (130-400); Red Blood Count 3.44 MC/CUMM (3.8-5.5); Red Cell Distribution Width 17.3 % (9.3-17.3); White Blood Count 7.4 T/CUMM (4-12)
[2021-12-24 05:26] LABS: Alanine Aminotransferase 11 U/L (13-56); Albumin 2.8 G/DL (3.4-5.0); Alkaline Phosphatase 107 U/L (45-117); Aspartate Amino Transferase 16 U/L (0-37); Bilirubin,Total < 0.39 MG/DL (0.20-1.00); Blood Urea Nitrogen 72 MG/DL (7-18); Calcium 10.4 MG/DL (8.5-10.1); Carbon Dioxide 20 MMOL/L (21-32); Chloride 98 MMOL/L (98-107); Glucose 93 MG/DL (74-106); Osmolality,Calculated 282.7 MOS/KG (273-304); Potassium 4.9 MMOL/L (3.5-5.1); Sodium 131 MMOL/L (136-145); Total Protein 8.5 G/DL (6.4-8.2)
[2021-12-24] MEDS: PANTOPRAZOLE 40 MG TABLET PO SCH (08:44)
[2021-12-24] MEDS: ISOSORBIDE MONONITRATE 30 MG TABLET PO SCH (08:44)
[2021-12-24] MEDS: CINACALCET 30 MG TABLET PO SCH (08:44)
[2021-12-24] MEDS: METOPROLOL SUCCINATE XL 50 MG TABLET PO SCH (08:45)
[2021-12-24] MEDS: ROSUVASTATIN 20 MG TABLET PO SCH (08:45)
[2021-12-24] MEDS: sitaGLIPtin 25 MG TABLET PO SCH (08:46)
[2021-12-24] MEDS: CETIRIZINE 10 MG TABLET PO SCH (08:46)
[2021-12-24] MEDS: ACETAMINOPHEN 325 MG TABLET PO PRN (09:02)
[2021-12-24] MEDS: SEVELAMER CARBONATE 800 MG TABLET PO SCH ×3 (09:03→17:06)
[2021-12-24] MEDS: cefTRIAXone 2,000 MG in SODIUM CHLORIDE 0.9% 100 ML IV SCH (09:08)
[2021-12-24] MEDS: LIDOCAINE 5% PATCH TRANSDERM SCH (17:06)
[2021-12-24] MEDS: LATANOPROST 0.005% OPH SOLN 2.5 ML BOTTLE BOTH EYES SCH (20:55)
[2021-12-25 05:48] LABS: Basophils % 0.3 % (0.0-0.8); Eosinophils # 0.1 10*3/uL (0.0-0.87); Eosinophils % 1.3 % (0.00-10.9); Hematocrit 28.5 VOL% (35.7-47.0); Immature Granulocytes % 0.9 %; Immature Granulocytes Absolute 0.06 #; Lymphocytes # 0.9 10*3/uL (1.4-4.0); Lymphocytes % 13.9 % (21.3-54.2); Mean Corpuscular HGB Conc 31.6 GM/DL (32-36); Mean Corpuscular Volume 87.4 FL (87-102); Mean Platelet Volume 12.1 FL (9.6-12.0); Monocytes # 0.6 10*3/uL (0.11-0.8); Monocytes % 9.6 % (1.7-12.7); Platelet Count 191 T/CUMM (130-400); Red Blood Count 3.26 MC/CUMM (3.8-5.5); Red Cell Distribution Width 17.1 % (9.3-17.3); White Blood Count 6.7 T/CUMM (4-12)
[2021-12-25 06:00] LABS: Calcium 10.5 MG/DL (8.5-10.1); Osmolality,Calculated 288.5 MOS/KG (273-304); Potassium 5.1 MMOL/L (3.5-5.1)
[2021-12-25] MEDS: SEVELAMER CARBONATE 800 MG TABLET PO SCH ×3 (08:47→19:10)
[2021-12-25] MEDS: cefTRIAXone 2,000 MG in SODIUM CHLORIDE 0.9% 100 ML IV SCH (09:01)
[2021-12-25] MEDS: MORPHINE 2 MG/1 ML SYRINGE IV PRN (12:00)
[2021-12-25] MEDS: ONDANSETRON 4 MG/2 ML VIAL IV PRN (12:04)
[2021-12-25] MEDS ORDERED: BUPIVACAINE MPF 0.25% 10 ML VIAL ONE (12:28)
[2021-12-25] MEDS ORDERED: LIDOCAINE MPF 1% /EPI 30 ML VIAL ONE (12:28)
[2021-12-25] MEDS ORDERED: TISSUE ADHESIVE 1 EACH APPLICATOR TOP ONE (12:28)
[2021-12-25] MEDS ORDERED: HEPARIN 5,000 UNIT/1 ML VIAL ONE (12:28)
[2021-12-25] MEDS ORDERED: fentaNYL 100 MCG/2 ML VIAL ONE (13:44)
[2021-12-25] MEDS ORDERED: SODIUM CHLORIDE 0.9% 250 ML IV ONE (14:19)
[2021-12-25] MEDS: LATANOPROST 0.005% OPH SOLN 2.5 ML BOTTLE BOTH EYES SCH (20:52)
[2021-12-25] MEDS: ROSUVASTATIN 20 MG TABLET PO SCH (21:32)
[2021-12-25] MEDS: ISOSORBIDE MONONITRATE 30 MG TABLET PO SCH (21:32)
[2021-12-25] MEDS: CINACALCET 30 MG TABLET PO SCH (21:33)
[2021-12-25] MEDS: PANTOPRAZOLE 40 MG TABLET PO SCH (21:33)
[2021-12-25] MEDS: CETIRIZINE 10 MG TABLET PO SCH (21:33)
[2021-12-25] MEDS: sitaGLIPtin 25 MG TABLET PO SCH (21:33)
[2021-12-25] MEDS: METOPROLOL SUCCINATE XL 50 MG TABLET PO SCH (21:33)
[2021-12-25] MEDS: LIDOCAINE 5% PATCH TRANSDERM SCH (21:34)
[2021-12-26] MEDS: MORPHINE 2 MG/1 ML SYRINGE IV PRN (05:07)
[2021-12-26 06:17] LABS: Calcium 10.8 MG/DL (8.5-10.1); Osmolality,Calculated 279.1 MOS/KG (273-304); Potassium 4.7 MMOL/L (3.5-5.1)
[2021-12-26] MEDS: SEVELAMER CARBONATE 800 MG TABLET PO SCH ×3 (09:34→17:23)
[2021-12-26] MEDS ORDERED: ALUM/MAG/SIMETH/LIDO VISC 1:1 30 ML BOTTLE PO ONE (10:50)
[2021-12-26] MEDS: PANTOPRAZOLE 40 MG TABLET PO SCH (11:04)
[2021-12-26] MEDS: CETIRIZINE 10 MG TABLET PO SCH (11:20)
[2021-12-26] MEDS: CINACALCET 30 MG TABLET PO SCH (11:20)
[2021-12-26] MEDS: cefTRIAXone 2,000 MG in SODIUM CHLORIDE 0.9% 100 ML IV SCH (12:24)
[2021-12-26] MEDS: ROSUVASTATIN 20 MG TABLET PO SCH (17:23)
[2021-12-26] MEDS: METOPROLOL SUCCINATE XL 50 MG TABLET PO SCH (17:23)
[2021-12-26] MEDS: ISOSORBIDE MONONITRATE 30 MG TABLET PO SCH (17:23)
[2021-12-26] MEDS: sitaGLIPtin 25 MG TABLET PO SCH (17:27)
[2021-12-26] MEDS: LIDOCAINE 5% PATCH TRANSDERM SCH (17:32)
[2021-12-26] MEDS: LATANOPROST 0.005% OPH SOLN 2.5 ML BOTTLE BOTH EYES SCH (20:39)
[2021-12-27 05:59] LABS: Calcium 11.3 MG/DL (8.5-10.1); Osmolality,Calculated 273.4 MOS/KG (273-304); Potassium 4.2 MMOL/L (3.5-5.1)
[2021-12-27] MEDS: SEVELAMER CARBONATE 800 MG TABLET PO SCH ×3 (10:43→17:37)
[2021-12-27] MEDS: CINACALCET 30 MG TABLET PO SCH (10:45)
[2021-12-27] MEDS: PANTOPRAZOLE 40 MG TABLET PO SCH (10:45)
[2021-12-27] MEDS: ERGOCALCIFEROL 50,000 UNIT CAPSULE PO SCH (10:45)
[2021-12-27] MEDS: sitaGLIPtin 25 MG TABLET PO SCH (10:45)
[2021-12-27] MEDS: METOPROLOL SUCCINATE XL 50 MG TABLET PO SCH (10:45)
[2021-12-27] MEDS: ROSUVASTATIN 20 MG TABLET PO SCH (10:46)
[2021-12-27] MEDS: ISOSORBIDE MONONITRATE 30 MG TABLET PO SCH (10:46)
[2021-12-27] MEDS: CETIRIZINE 10 MG TABLET PO SCH (10:46)
[2021-12-27] MEDS: cefTRIAXone 2,000 MG in SODIUM CHLORIDE 0.9% 100 ML IV SCH (13:37)
[2021-12-27] MEDS: DICYCLOMINE 10 MG CAPSULE PO SCH ×2 (17:31→21:22)
[2021-12-27] MEDS: ONDANSETRON 4 MG/2 ML VIAL IV PRN (20:07)
[2021-12-27] MEDS: LIDOCAINE 5% PATCH TRANSDERM SCH (20:24)
[2021-12-27] MEDS: LATANOPROST 0.005% OPH SOLN 2.5 ML BOTTLE BOTH EYES SCH (21:59)
[2021-12-28 05:45] LABS: Calcium 10.8 MG/DL (8.5-10.1); Osmolality,Calculated 275.5 MOS/KG (273-304); Potassium 4.6 MMOL/L (3.5-5.1)
[2021-12-28 08:46] LABS: Basophils % 0.5 % (0.0-0.8); Eosinophils # 0.2 10*3/uL (0.0-0.87); Eosinophils % 2.3 % (0.00-10.9); Hematocrit 29.5 VOL% (35.7-47.0); Hemoglobin 9.4 GM/DL (12.0-16.0); Immature Granulocytes % 0.9 %; Immature Granulocytes Absolute 0.06 #; Lymphocytes # 1.2 10*3/uL (1.4-4.0); Lymphocytes % 18.6 % (21.3-54.2); Mean Corpuscular HGB Conc 31.9 GM/DL (32-36); Mean Platelet Volume 11.8 FL (9.6-12.0); Monocytes # 0.7 10*3/uL (0.11-0.8); Monocytes % 10.4 % (1.7-12.7); Neutrophils % 67.3 % (38.7-73.9); Platelet Count 215 T/CUMM (130-400); Red Blood Count 3.39 MC/CUMM (3.8-5.5); Red Cell Distribution Width 16.6 % (9.3-17.3); White Blood Count 6.6 T/CUMM (4-12)
[2021-12-28] MEDS: sitaGLIPtin 25 MG TABLET PO SCH (09:26)
[2021-12-28] MEDS: ROSUVASTATIN 20 MG TABLET PO SCH (09:26)
[2021-12-28] MEDS: SEVELAMER CARBONATE 800 MG TABLET PO SCH ×3 (09:26→16:55)
[2021-12-28] MEDS: ISOSORBIDE MONONITRATE 30 MG TABLET PO SCH (09:26)
[2021-12-28] MEDS: CETIRIZINE 10 MG TABLET PO SCH (09:27)
[2021-12-28] MEDS: CINACALCET 30 MG TABLET PO SCH (09:27)
[2021-12-28] MEDS: METOPROLOL SUCCINATE XL 50 MG TABLET PO SCH (09:27)
[2021-12-28] MEDS: DICYCLOMINE 10 MG CAPSULE PO SCH ×3 (09:27→21:00)
[2021-12-28] MEDS: PANTOPRAZOLE 40 MG TABLET PO SCH (09:29)
[2021-12-28] MEDS ORDERED: VANCOMYCIN INJ 500 MG in SODIUM CHLORIDE 0.9% 100 ML IV PRN (09:57)
[2021-12-28] MEDS ORDERED: VANCOMYCIN INJ 2,000 MG in SODIUM CHLORIDE 0.9% 500 ML IV ONE (11:00)
[2021-12-28] MEDS: LIDOCAINE 5% PATCH TRANSDERM SCH (16:55)
[2021-12-28] MEDS ORDERED: cefTRIAXone 2,000 MG in SODIUM CHLORIDE 0.9% 100 ML IV SCH (17:00)
[2021-12-28] MEDS: LATANOPROST 0.005% OPH SOLN 2.5 ML BOTTLE BOTH EYES SCH (21:00)
[2021-12-29 06:03] LABS: Basophils % 0.3 % (0.0-0.8); Eosinophils # 0.1 10*3/uL (0.0-0.87); Eosinophils % 1.9 % (0.00-10.9); Hematocrit 28.3 VOL% (35.7-47.0); Immature Granulocytes % 0.8 %; Immature Granulocytes Absolute 0.06 #; Lymphocytes # 1.3 10*3/uL (1.4-4.0); Lymphocytes % 17.2 % (21.3-54.2); Mean Corpuscular HGB Conc 31.8 GM/DL (32-36); Mean Corpuscular Volume 87.1 FL (87-102); Mean Platelet Volume 11.4 FL (9.6-12.0); Monocytes # 0.7 10*3/uL (0.11-0.8); Monocytes % 8.6 % (1.7-12.7); Neutrophils % 71.2 % (38.7-73.9); Platelet Count 218 T/CUMM (130-400); Red Blood Count 3.25 MC/CUMM (3.8-5.5); Red Cell Distribution Width 16.4 % (9.3-17.3); White Blood Count 7.5 T/CUMM (4-12)
[2021-12-29 06:28] LABS: Calcium 10.2 MG/DL (8.5-10.1); Osmolality,Calculated 275.8 MOS/KG (273-304); Potassium 5.2 MMOL/L (3.5-5.1)
[2021-12-29] MEDS: sitaGLIPtin 25 MG TABLET PO SCH (09:09)
[2021-12-29] MEDS: ROSUVASTATIN 20 MG TABLET PO SCH (09:09)
[2021-12-29] MEDS: PANTOPRAZOLE 40 MG TABLET PO SCH (09:10)
[2021-12-29] MEDS: ASPIRIN EC 81 MG TABLET PO SCH (09:10)
[2021-12-29] MEDS: SEVELAMER CARBONATE 800 MG TABLET PO SCH ×4 (09:10→17:11)
[2021-12-29] MEDS: CETIRIZINE 10 MG TABLET PO SCH (09:10)
[2021-12-29] MEDS: CINACALCET 30 MG TABLET PO SCH (13:26)
[2021-12-29] MEDS: DICYCLOMINE 10 MG CAPSULE PO SCH ×3 (13:27→22:10)
[2021-12-29] MEDS: ISOSORBIDE MONONITRATE 30 MG TABLET PO SCH (13:27)
[2021-12-29] MEDS: LACTULOSE 20 GM/30 ML UDCUP PO PRN ×2 (13:27→17:45)
[2021-12-29] MEDS: METOPROLOL SUCCINATE XL 50 MG TABLET PO SCH (13:27)
[2021-12-29] MEDS: LIDOCAINE 5% PATCH TRANSDERM SCH (17:45)
[2021-12-29] MEDS ORDERED: VANCOMYCIN INJ 500 MG in SODIUM CHLORIDE 0.9% 100 ML IV ONE (18:00)
[2021-12-29] MEDS: BISACODYL 10 MG SUPP RECTAL PRN (21:02)
[2021-12-29] MEDS: LATANOPROST 0.005% OPH SOLN 2.5 ML BOTTLE BOTH EYES SCH (21:03)
[2021-12-30] MEDS ORDERED: MINERAL OIL ENEMA 133 ML BOTTLE RECTAL PRN (02:07)
[2021-12-30] MEDS: LACTULOSE 20 GM/30 ML UDCUP PO PRN ×2 (03:11→09:23)
[2021-12-30 05:21] LABS: Calcium 10.9 MG/DL (8.5-10.1); Osmolality,Calculated 278.2 MOS/KG (273-304); Potassium 4.3 MMOL/L (3.5-5.1)
[2021-12-30 05:58] LABS: Basophils % 0.2 % (0.0-0.8); Eosinophils % 0.1 % (0.00-10.9); Hematocrit 31.7 VOL% (35.7-47.0); Hemoglobin 10.1 GM/DL (12.0-16.0); Immature Granulocytes % 0.5 %; Immature Granulocytes Absolute 0.08 #; Lymphocytes # 0.9 10*3/uL (1.4-4.0); Lymphocytes % 6.2 % (21.3-54.2); Mean Corpuscular HGB Conc 31.9 GM/DL (32-36); Mean Corpuscular Volume 86.8 FL (87-102); Mean Platelet Volume 10.7 FL (9.6-12.0); Monocytes # 0.8 10*3/uL (0.11-0.8); Monocytes % 5.2 % (1.7-12.7); Neutrophils % 87.8 % (38.7-73.9); Platelet Count 233 T/CUMM (130-400); Red Blood Count 3.65 MC/CUMM (3.8-5.5); Red Cell Distribution Width 16.4 % (9.3-17.3); White Blood Count 15.1 T/CUMM (4-12)
[2021-12-30] MEDS: ISOSORBIDE MONONITRATE 30 MG TABLET PO SCH (09:14)
[2021-12-30] MEDS: PANTOPRAZOLE 40 MG TABLET PO SCH (09:14)
[2021-12-30] MEDS: ROSUVASTATIN 20 MG TABLET PO SCH (09:14)
[2021-12-30] MEDS: CINACALCET 30 MG TABLET PO SCH (09:14)
[2021-12-30] MEDS: CETIRIZINE 10 MG TABLET PO SCH (09:14)
[2021-12-30] MEDS: sitaGLIPtin 25 MG TABLET PO SCH (09:15)
[2021-12-30] MEDS: METOPROLOL SUCCINATE XL 50 MG TABLET PO SCH (09:15)
[2021-12-30] MEDS: ASPIRIN EC 81 MG TABLET PO SCH (09:15)
[2021-12-30] MEDS: SEVELAMER CARBONATE 800 MG TABLET PO SCH ×3 (09:16→16:55)
[2021-12-30] MEDS: DICYCLOMINE 10 MG CAPSULE PO SCH ×3 (09:19→21:11)
[2021-12-30 09:43] LABS: Basophils % 0.1 % (0.0-0.8); Eosinophils # 0.1 10*3/uL (0.0-0.87); Eosinophils % 0.3 % (0.00-10.9); Hematocrit 30.7 VOL% (35.7-47.0); Hemoglobin 9.9 GM/DL (12.0-16.0); Immature Granulocytes % 0.7 %; Lymphocytes % 6.6 % (21.3-54.2); Mean Corpuscular HGB Conc 32.2 GM/DL (32-36); Mean Corpuscular Volume 86.7 FL (87-102); Monocytes # 0.7 10*3/uL (0.11-0.8); Monocytes % 4.6 % (1.7-12.7); Neutrophils % 87.7 % (38.7-73.9); Platelet Count 223 T/CUMM (130-400); Red Blood Count 3.54 MC/CUMM (3.8-5.5); Red Cell Distribution Width 16.5 % (9.3-17.3); White Blood Count 15.2 T/CUMM (4-12)
[2021-12-30] MEDS: BISACODYL 10 MG SUPP RECTAL PRN (16:52)
[2021-12-30] MEDS: LIDOCAINE 5% PATCH TRANSDERM SCH (16:53)
[2021-12-30] MEDS: LATANOPROST 0.005% OPH SOLN 2.5 ML BOTTLE BOTH EYES SCH (21:11)
[2021-12-31] MEDS: PHENYLEPH/MINERAL OIL/PETROLAT 57 GM TUBE TOP PRN (02:59)
[2021-12-31] MEDS ORDERED: MORPHINE 2 MG/1 ML SYRINGE IV ONE (03:30)
[2021-12-31 05:31] LABS: Basophils % 0.1 % (0.0-0.8); Eosinophils # 0.3 10*3/uL (0.0-0.87); Eosinophils % 1.6 % (0.00-10.9); Hematocrit 28.9 VOL% (35.7-47.0); Hemoglobin 9.3 GM/DL (12.0-16.0); Immature Granulocytes % 0.5 %; Immature Granulocytes Absolute 0.08 #; Lymphocytes # 1.2 10*3/uL (1.4-4.0); Lymphocytes % 7.4 % (21.3-54.2); Mean Corpuscular HGB Conc 32.2 GM/DL (32-36); Mean Corpuscular Volume 85.8 FL (87-102); Mean Platelet Volume 11.2 FL (9.6-12.0); Monocytes % 6.1 % (1.7-12.7); Neutrophils % 84.3 % (38.7-73.9); Platelet Count 218 T/CUMM (130-400); Red Blood Count 3.37 MC/CUMM (3.8-5.5); Red Cell Distribution Width 16.5 % (9.3-17.3); White Blood Count 16.5 T/CUMM (4-12)
[2021-12-31 05:49] LABS: Calcium 11.2 MG/DL (8.5-10.1); Osmolality,Calculated 273.7 MOS/KG (273-304); Potassium 4.3 MMOL/L (3.5-5.1)
[2021-12-31] MEDS: ISOSORBIDE MONONITRATE 30 MG TABLET PO SCH (08:57)
[2021-12-31] MEDS: CETIRIZINE 10 MG TABLET PO SCH (08:57)
[2021-12-31] MEDS: PANTOPRAZOLE 40 MG TABLET PO SCH (08:57)
[2021-12-31] MEDS: sitaGLIPtin 25 MG TABLET PO SCH (08:57)
[2021-12-31] MEDS: CINACALCET 30 MG TABLET PO SCH (08:57)
[2021-12-31] MEDS: DICYCLOMINE 10 MG CAPSULE PO SCH ×3 (08:57→21:12)
[2021-12-31] MEDS: METOPROLOL SUCCINATE XL 50 MG TABLET PO SCH (08:58)
[2021-12-31] MEDS: ASPIRIN EC 81 MG TABLET PO SCH (08:58)
[2021-12-31] MEDS: ROSUVASTATIN 20 MG TABLET PO SCH (08:58)
[2021-12-31] MEDS: SEVELAMER CARBONATE 800 MG TABLET PO SCH ×3 (09:26→16:16)
[2021-12-31] MEDS: LIDOCAINE 5% PATCH TRANSDERM SCH ×2 (16:12→16:16)
[2021-12-31] MEDS ORDERED: VANCOMYCIN INJ 500 MG in SODIUM CHLORIDE 0.9% 100 ML IV ONE (18:00)
[2021-12-31] MEDS: LATANOPROST 0.005% OPH SOLN 2.5 ML BOTTLE BOTH EYES SCH (22:35)
[2022-01-01] MEDS: PHENYLEPH/MINERAL OIL/PETROLAT 57 GM TUBE TOP PRN (00:25)
[2022-01-01] MEDS ORDERED: MORPHINE 2 MG/1 ML SYRINGE IV PRN (01:21)
[2022-01-01] MEDS: BISACODYL 10 MG SUPP RECTAL PRN (01:21)
[2022-01-01 03:52] LABS: Basophils % 0.2 % (0.0-0.8); Eosinophils # 0.3 10*3/uL (0.0-0.87); Eosinophils % 2.4 % (0.00-10.9); Hematocrit 27.4 VOL% (35.7-47.0); Hemoglobin 8.8 GM/DL (12.0-16.0); Immature Granulocytes % 0.4 %; Immature Granulocytes Absolute 0.06 #; Lymphocytes # 1.4 10*3/uL (1.4-4.0); Lymphocytes % 9.8 % (21.3-54.2); Mean Corpuscular HGB Conc 32.1 GM/DL (32-36); Mean Corpuscular Volume 85.9 FL (87-102); Mean Platelet Volume 11.3 FL (9.6-12.0); Monocytes # 0.9 10*3/uL (0.11-0.8); Monocytes % 6.3 % (1.7-12.7); Neutrophils % 80.9 % (38.7-73.9); Platelet Count 197 T/CUMM (130-400); Red Blood Count 3.19 MC/CUMM (3.8-5.5); Red Cell Distribution Width 16.4 % (9.3-17.3)
[2022-01-01 04:12] LABS: Calcium 11.1 MG/DL (8.5-10.1); Osmolality,Calculated 267.7 MOS/KG (273-304); Potassium 3.9 MMOL/L (3.5-5.1)
[2022-01-01] MEDS: LACTULOSE 20 GM/30 ML UDCUP PO PRN (10:01)
[2022-01-01] MEDS: CINACALCET 30 MG TABLET PO SCH (10:02)
[2022-01-01] MEDS: ASPIRIN EC 81 MG TABLET PO SCH (10:02)
[2022-01-01] MEDS: METOPROLOL SUCCINATE XL 50 MG TABLET PO SCH (10:02)
[2022-01-01] MEDS: PANTOPRAZOLE 40 MG TABLET PO SCH (10:02)
[2022-01-01] MEDS: CETIRIZINE 10 MG TABLET PO SCH (10:03)
[2022-01-01] MEDS: sitaGLIPtin 25 MG TABLET PO SCH (10:03)
[2022-01-01] MEDS: DICYCLOMINE 10 MG CAPSULE PO SCH (10:03)
[2022-01-01] MEDS: ISOSORBIDE MONONITRATE 30 MG TABLET PO SCH (10:03)
[2022-01-01] MEDS: SEVELAMER CARBONATE 800 MG TABLET PO SCH ×2 (10:03→13:19)
[2022-01-01] MEDS: ROSUVASTATIN 20 MG TABLET PO SCH (10:03)
[2022-01-01 12:23] VITALS: BP 113/47
== END 2022-01-01 15:30 | disposition home health service (06) | DRG 314 ==
LOC: EDUNIT# → N.ED 09:31 → N.EDINP 09:31 → SUATTDRO 12:37 → N.EDINP 17:50 → N.5E 18:26
PROVIDERS: ADMIT Family Medicine; ATTEND Internal Medicine